=== PATIENT | male | born 1950 | race Caucasian/White ===

== ENCOUNTER 2018-12-18 19:30 | Outpatient (CLI) | payer MEDICARE, BC | END 2018-12-18 19:31 | disposition home or self-care (01) | LOC: SLEEPLAB 19:30 | PROVIDERS: ATTEND Internal Medicine Critical Care Medicine | DX: G47.33 Obstructive sleep apnea (adult) (pediatric) (principal); R06.83 Snoring | CPT/HCPCS: 95810 ==